=== PATIENT | female | born 1935 | race Caucasian/White ===

== ENCOUNTER → 2017-03-27 | Day surgery (SDC) | payer MEDICARE ==
[~2017-03-27] VITALS: Ht 165.1 cm; Wt 69.0 kg
[~2017-03-27] MED LIST: BACITRACIN TOP OINT 15 GM TUBE ONE; BUPIVACAINE HCL PF 0.5% 30 ML VIAL ONE; BUPIVACAINE/EPINEPHRINE 0.5% PF 30 ML VIAL ONE; CEPH-460 PO; CHLORHEXIDINE GLUCONATE 2 % 1 PACK (2 CLOTHS) TOPICAL PRN; CHOL5000 PO; CINN500C2 PO; COQ-100C5 PO; DO NOT ADM ANY ANTICOAGULANT DRUGS PRN; HYDR-3111 PO; KRIL1CAP PO; LACTATED RINGER'S 1000 ML INJ 1,000 ML IV ONE; LACTATED RINGER'S 1000 ML IV PRN; LEVO100T5 PO; LIDOCAINE HCL 1% PF 5 ML SYRINGE OTHER ONE; LISI-519 PO; METOPROLOL TARTRATE 25 MG TAB PO PRN; POVIDONE IODINE 5% (ANTISEPSIS KIT) 4 APPLICATIONS EACH NARE PRN; PROPOFOL 500 MG/50 ML INJ 100 ML ONE; SODIUM CHLORID 0.9% 500 ML IV PRN; SODIUM CHLORIDE 0.9% FLUSH 10 ML FLUSH IV FLUSH SCH; SODIUM CHLORIDE 0.9% INJ 100 ML ONE; SYMB80AE INH; VITA1CAP7 PO; VITA500C18 PO; VITACAP7 PO; ceFAZolin 1,000 MG/NS 100 ML IV SCH; ceFAZolin INJ 1,000 MG VIAL ONE
[2017-03-27 06:59] LABS: AUTOMATED NEUTROPHIL # 2.5 TH/MM3 (1.8-7.7); BASOPHIL # 0.2 TH/MM3 (0-0.2); BASOPHIL % 3.6 % (0.0-2.0); EOSINOPHIL # 0.3 TH/MM3 (0-0.4); EOSINOPHIL % 4.5 % (0.0-4.0); HEMATOCRIT 38.6 % (35.0-46.0); HEMOGLOBIN 13.1 GM/DL (11.6-15.3); LYMPH % 35.7 % (9.0-44.0); LYMPHOCYTE # 2.1 TH/MM3 (1.0-4.8); MEAN CORPUSCULAR HEMOGLOBIN 31.6 PG (27.0-34.0); MEAN CORPUSCULAR HGB CONC 33.9 % (32.0-36.0); MEAN PLATELET VOLUME 8.9 FL (7.0-11.0); MONO % 13.4 % (0.0-8.0); MONOCYTE # 0.8 TH/MM3 (0-0.9); NEUT % 42.8 % (16.0-70.0); PLATELET COUNT 260 TH/MM3 (150-450); RED BLOOD COUNT 4.15 MIL/MM3 (4.00-5.30); RED CELL DISTRIBUTION WIDTH 15.3 % (11.6-17.2); WHITE BLOOD COUNT 5.9 TH/MM3 (4.0-11.0)
[2017-03-27 10:40] VITALS: BP 171/74; PULSE 63; RESP 18; TEMP 97.7; O2SAT 99
--- NOTE | 2017-03-27 10:52 | EKG ---
Date Performed: 03/27/2017 Time Performed: 06:38:49 PTAGE: 82 years EKG: Sinus rhythm NORMAL ECG NO PREVIOUS TRACING DOCTOR: Jesus Winter Interpretating Date/Time 03/27/2017 10:49:59
--- NOTE | 2017-03-29 13:23 | PD.OP ---
Operative Report Date of Surgery: Mar 27, 2017 Preoperative Diagnosis: (1) Carpal tunnel syndrome Postoperative Diagnosis: (1) Carpal tunnel syndrome Procedure: Left open carpal tunnel release (39132) Anesthesia: Gen. Surgeon: Kong Diaz Help Desk Associate(s): . Operation and Findings: This is an 82-year-old female who presents with signs and symptoms consistent with left carpal tunnel syndrome. Risks benefits and alternative treatments were discussed. All questions were answered. Patient expressed understanding. Patient elected to assume the risks of open release of her carpal tunnel. Informed consent was obtained. The patient was given antibiotics precision agronomist to the operating room. The patient was taken to the operating room. All pressure points were padded. After appropriate padding, an upper extremity tourniquet was placed. After the smooth induction of IV anesthesia, the surgical site was instilled with half percent Marcaine with epinephrine. The surgical site was prepped and draped in the usual sterile fashion. The upper extremity was exsanguinated using an Esmarch. The tourniquet was inflated to 250 mmHg. The incision was marked just radial to the hypothenar eminence. The skin over the carpal tunnel was sharply incised. Blunt dissection was used to dissect down to the superficial palmar fascia. This was sharply incised using a 15 blade. After exposure of the transverse carpal ligament, it was meticulously incised with a 15 blade under direct vision, also using a [place] elevator as a backstop. The median nerve was visualized and kept free from injury. After the transverse carpal ligament was completely released, the antebrachial fascia was released using the tenotomy scissors. A full release of the transverse carpal ligament was confirmed using manual palpation proximally and distally. Hemostasis was obtained using Bovie cautery. The incision was closed using a 4- 0 nylon in a running horizontal mattress fashion. The incision was dressed with bacitracin Xeroform dry gauze and soft roll. An appropriately padded volar splint was fashioned. The tourniquet was let down, with the total tourniquet time being 13 minutes. All digits pinked up nicely. All needle sponge and instrument counts were correct 2. The patient was awoken from anesthesia and arrived stable and doing well to the PACU. Kong Diaz MD Mar 29, 2017 13:23
== END | disposition home or self-care (01) ==
LOC: HSDC 05:58
PROVIDERS: ATTEND Student in an Organized Health Care Education/Training Program
DX: G56.02 Carpal tunnel syndrome, left upper limb (principal); I10 Essential (primary) hypertension; J45.909 Unspecified asthma, uncomplicated; E03.9 Hypothyroidism, unspecified; Z01.818 Encounter for other preprocedural examination; Z01.810 Encounter for preprocedural cardiovascular examination
CPT/HCPCS: 01810; 64721; 85025; 93005; J0690; J3010; J7120